=== PATIENT | female | born 1980 | race Caucasian/White ===

== ENCOUNTER 2017-03-02 10:46 | Emergency (ER) | payer SELFPAY ==
[~2017-03-02] VITALS: Ht 167.6 cm; Wt 100.0 kg
[~2017-03-02 10:46] MED LIST: AFRI0.052 EACH NARE; LEXA20TA PO; MEDR4PAK PO
[2017-03-02 10:47] VITALS: BP 145/91; PULSE 78; RESP 16; TEMP 97.7; O2SAT 98
--- NOTE | 2017-03-02 12:11 | PD ---
HPI Chief Complaint: Respiratory Symptoms Time Seen by Provider: 12:07 Travel History International Travel<30 days: No Contact w/Intl Traveler<30days: No Traveled to known affect area: No History of Present Illness HPI 37-year-old female presents to emergency department with complaint of continued nasal congestion, cough, wheezing times one week. She was seen at [facility] on and was given a Medrol Dosepak with no inspiratory pain symptoms. Denies fever, vomiting. Denies ear pain or sore throat. Reports chest tightness and shortness of breath. Denies chest pain. Reports tobacco use. Has not been using any other medications or treatments to relieve her symptoms. No known allergies. Symptoms are moderate in severity. Has no other medical complaints. No other modifying factors or associated signs and symptoms. PFSH Past Medical History Anxiety: Yes Depression: Yes Diminished Hearing: No Social History Alcohol Use: Yes (SOCIALLY) Tobacco Use: Yes (1PPD) Substance Use: No Allergies-Medications (Allergen,Severity, Reaction): Coded Allergies: No Known Allergies (Unverified , 03/02/17) Reported Meds & Prescriptions Reported Meds & Active Scripts Active Azithromycin 500 Mg Tab 500 Mg PO DAILY Proair Hfa 8.5 GM Inh (Albuterol Sulfate) 90 Mcg/Act Aer 2 Puff INH Q4-6H PRN 108 mcg/actuation Reported Lexapro (Escitalopram Oxalate) 20 Mg Tab 20 Mg PO DAILY Review of Systems Except as stated in HPI: all other systems reviewed are Neg Physical Exam Narrative GENERAL: Well-nourished, well-developed female patient, in no acute distress; afebrile, nontoxic-appearing SKIN: Warm and moist. HEAD: Atraumatic. Normocephalic. EYES: Pupils equal and round. No scleral icterus. No injection or drainage. ENT: Mucosa pink and moist. No erythema or exudates. No uvular edema. No uvular , palatal, or tonsillar deviation. Airway patent. EARS: Bilateral pinnae and external canals appear within normal limits. Bilateral tympanic membranes without erythema, dullness or perforation. NECK: Trachea midline. No lymphadenopathy. CARDIOVASCULAR: Regular rate and rhythm. No murmur appreciated. RESPIRATORY: No accessory muscle use. Lungs sounds with wheezing throughout on auscultation. Breath sounds equal bilaterally. No audible wheezing. No retractions or tachypnea. GASTROINTESTINAL: Abdomen soft, non-tender, nondistended. Hepatic and splenic margins not palpable. Bowel sounds are active 4 quadrants. MUSCULOSKELETAL: No obvious deformities. No clubbing. No cyanosis. No edema. NEUROLOGICAL: Awake and alert. Oriented 3. No obvious cranial nerve deficits. Motor grossly within normal limits. Normal speech. Moves all extremities. 5/5 strength to all extremities. PSYCHIATRIC: Appropriate mood and affect; insight and judgment normal. Data Data Last Documented VS Vital Signs Date Time Temp Pulse Resp B/P (MAP) Pulse Ox O2 Delivery O2 Flow Rate FiO2 03/02/17 10:47 97.7 78 16 145/91 (109) 98 Orders Orders Chest, Pa & Lat (03/02/17 12:11) Albuterol Neb (Albuterol Neb) (03/02/17 12:15) [facility] Medical Decision Making Medical Screen Exam Complete: Yes Emergency Medical Condition: Yes Medical Record Reviewed: Yes Differential Diagnosis Upper respiratory infection, bronchitis, pneumonia Narrative Course 37-year-old female physical exam consistent with bronchitis and upper respiratory infection. Patient has wheezing throughout. She is in no acute distress and oxygen saturation is 98% on room air. No audible wheezing. No retractions or tachypnea. Reports tobacco use. Patient is afebrile and nontoxic-appearing. She denies fever, vomiting. She is currently taking a Medrol Dosepak. Albuterol nebulizer and chest x-ray ordered. 1320: Chest x-ray with no acute findings. Pro-air inhaler, azithromycin prescribed for home. Instructed patient to continue Medrol Dosepak as prescribed. Instructed patient to follow up with primary care provider. Patient verbalizes understanding and agreement with treatment plan. Patient is medically cleared and stable for discharge. Discussed reasons to return to the emergency department. Patient agrees with treatment plan. The patients vital signs are stable and the patient is stable for outpatient follow-up and treatment. Patient discharged home, stable and in no acute distress. Diagnosis Primary Impression: Bronchitis Additional Impression: URI (upper respiratory infection) Qualified Codes: J06.9 - Acute upper respiratory infection, unspecified Referrals: Primary Care Physician Patient Instructions: Acute Bronchitis (ED), General Instructions, Safe Use of Cough and Cold Medicines (ED) Departure Forms: Tests/Procedures, Work Release Enter return to work date: Mar 04, 2017 Additional Instructions: Use Albuterol inhaler as prescribed Take oral steroids as prescribed and complete full course [id number] decongestants or antihistamines as directed and as needed for symptom management Your cough can last 4-6 weeks Drink plenty of fluids to prevent dehydration Use hot air humidifier to decrease cough exacerbation Turn off ceiling fans and sleep with head of bed elevated Avoid triggers such as second hand smoke, dust, known allergens Follow-up with your primary care provider Return to the emergency department immediately with worsening of symptoms Med/Other Pt SpecificInfo: Prescription(s) given Scripts Azithromycin (Azithromycin) 500 Mg Tab 500 MG PO DAILY for Infection, #5 TAB 0 Refills Prov: Jillian Costello 03/02/17 Albuterol 8.5 GM Inh (Proair Hfa 8.5 GM Inh) 90 Mcg/Act Aer 2 PUFF INH Q4-6H Y for SOB/WHEEZING, #1 INHALER 0 Refills 108 mcg/actuation Prov: Jillian Costello 03/02/17 Disposition: 01 DISCHARGE HOME Condition: Stable Jillian Costello Mar 02, 2017 12:11
[2017-03-02] MEDS ORDERED: AZIT500T2 PO (12:15)
[2017-03-02] MEDS ORDERED: ALBUAER3 INH (12:15)
[2017-03-02] MEDS ORDERED: RESP: ALBUTEROL 2.5 MG/3 ML NEB (SCH) INH ONE (12:15)
--- NOTE | 2017-03-02 13:11 | RADRPT ---
EXAM DATE/TIME: 03/02/2017 13:01 [place] COMPARISON: No previous studies available for comparison. INDICATIONS : Cough with shortness of breath and wheezing. MEDICAL HISTORY : Broncchitis SURGICAL HISTORY : None. ENCOUNTER: Initial ACUITY: 3 days PAIN SCORE: 2/10 LOCATION: Bilateral chest FINDINGS: PA and lateral views of the chest demonstrate the lungs to be symmetrically aerated without evidence of mass, infiltrate or effusion. The cardiomediastinal contours are unremarkable. Osseous structure s are intact. CONCLUSION: No acute disease. Adin Laureano MD on March 02, 2017 at 13:07 Board Certified Radiologist. This report was verified electronically.
== END 2017-03-02 13:30 | disposition home or self-care (01) ==
LOC: EDTENT 10:46
DX: J20.9 Acute bronchitis, unspecified (principal); J06.9 Acute upper respiratory infection, unspecified
CPT/HCPCS: 71020; 94664; 99284; J7613